=== PATIENT | male | born 1975 | race African-American/Black ===

== ENCOUNTER 2021-12-05 13:18 | Inpatient (IN) | payer OTHER ==
[2021-12-05 14:21] VITALS: BMI 24.9
[2021-12-05] MEDS ORDERED: BISMUTH SUBSALICYLATE 262 MG/15 ML BTL PO PRN (15:40)
[2021-12-05] MEDS ORDERED: NICOTINE 14 MG/24 HOURS TOPICAL PATCH TD PRN (15:40)
[2021-12-05] MEDS ORDERED: LOPERAMIDE HCL 2 MG CAPSULE PO PRN (15:40)
[2021-12-05] MEDS ORDERED: MAGNESIUM CITRATE 300 ML BOTTLE PO PRN (15:40)
[2021-12-05] MEDS ORDERED: DICYCLOMINE HCL 10 MG CAPSULE PO PRN (15:40)
[2021-12-05] MEDS ORDERED: IBUPROFEN 400 MG TABLET (FP) PO PRN (15:40)
[2021-12-05] MEDS ORDERED: MAG HYDROX/AL HYDROX/SIMETH 30 ML UNIT-DOSE CUP PO PRN (15:40)
[2021-12-05] MEDS ORDERED: ONDANSETRON *ODT* 4 MG TABLET SL PRN (15:40)
[2021-12-05] MEDS ORDERED: NALOXONE HCL (KLOXXADO) 8 MG SPRAY NS PRN (15:40)
[2021-12-05] MEDS ORDERED: ACETAMINOPHEN 325 MG TABLET (FP) PO PRN ×2 (15:40)
[2021-12-05] MEDS ORDERED: NICOTINE 10 MG CARTRIDGE (INHALER) IH PRN (15:40)
[2021-12-05] MEDS ORDERED: MAGNESIUM HYDROX 2400MG/30ML ORAL SUSPENSION 30 ML CUP PO PRN (15:40)
[2021-12-05] MEDS ORDERED: BENZOCAINE/MENTHOL (CHLORASEPTIC ) LOZENGE MM PRN (15:40)
[2021-12-05] MEDS ORDERED: IBUPROFEN 600 MG TABLET (FP) PO PRN (15:40)
[2021-12-05] MEDS: diazePAM 5 MG TABLET PO PRN (18:34)
[2021-12-05] MEDS: PRENATAL VITAMINS W/ FOLIC ACID TABLET (FP) PO SCH (18:39)
[2021-12-05] MEDS: hydrOXYzine PAMOATE 25 MG CAPSULE (FP) PO SCH ×2 (18:39→22:26)
[2021-12-05] MEDS ORDERED: THIAMINE HCL 100 MG TABLET (FP) PO SCH (22:00)
[2021-12-05] MEDS ORDERED: MELATONIN 5 MG TABLETS PO SCH (22:00)
[2021-12-05] MEDS ORDERED: ATORVASTATIN CA 20 MG TABLET (FP) PO SCH (22:00)
[2021-12-05] MEDS: diazePAM 5 MG TABLET PO SCH (22:21)
[2021-12-05] MEDS: levETIRAcetam 500 MG TABLET (FP) PO SCH (22:21)
[2021-12-06] MEDS ORDERED: cloNIDine HCL 0.1 MG TABLET PO ONE ×2 (00:39→13:45)
[2021-12-06] MEDS: diazePAM 5 MG TABLET PO PRN (03:00)
[2021-12-06] MEDS: diazePAM 5 MG TABLET PO SCH ×2 (05:08→10:10)
[2021-12-06] MEDS: hydrOXYzine PAMOATE 25 MG CAPSULE (FP) PO SCH ×3 (05:08→13:54)
[2021-12-06] MEDS ORDERED: LISINOPRIL 20 MG TABLET PO ONE (06:47)
[2021-12-06] MEDS: METHOCARBAMOL 500 MG TABLET PO PRN ×2 (10:10→15:34)
[2021-12-06] MEDS: PRENATAL VITAMINS W/ FOLIC ACID TABLET (FP) PO SCH (10:10)
[2021-12-06] MEDS: levETIRAcetam 500 MG TABLET (FP) PO SCH (10:10)
[2021-12-06] MEDS ORDERED: amLODIPine BESYLATE 5 MG TABLET (FP) PO SCH (10:45)
[2021-12-06] MEDS ORDERED: HYDROCHLOROTHIAZIDE 25 MG TABLET (FP) PO SCH (10:45)
[2021-12-06 12:21] LABS: HEMATOCRIT 37.9 % (35.4-49); HEMOGLOBIN 12.3 GM/dL (11.7-16.9); MCH 30.3 pg (25.7-33.7); MCHC 32.5 g/dl (32.0-35.9); MEAN CELL VOLUME 93.1 fl (80-96); MEAN PLT VOLUME 7.9 fl (7.5-11.1); PLATELET COUNT 177 10^3/uL (134-434); RBC 4.07 M/mm3 (4.00-5.60); RDW 13.5 % (11.9-15.9); WHITE BLOOD COUNT 2.9 K/mm3 (4.0-10.0)
[2021-12-06 12:31] LABS: CHLORIDE 97 mmol/L (98-107); SODIUM 141 mmol/L (136-145)
[2021-12-06 13:10] LABS: GLUCOSE,RANDOM 91 mg/dL (74-106)
[2021-12-06 13:13] LABS: CREATININE 0.9 mg/dL (0.55-1.3); SGOT/AST 54 U/L (15-37)
[2021-12-06 13:14] LABS: CALCIUM 9.4 mg/dL (8.5-10.1)
[2021-12-06 13:15] LABS: ALBUMIN 3.5 g/dl (3.4-5.0); CO2 34 mmol/L (21-32)
[2021-12-06 13:18] LABS: BILIRUBIN,TOTAL 0.8 mg/dL (0.2-1)
[2021-12-06 13:19] LABS: SGPT/ALT 38 U/L (13-61); TOT PROT 6.5 g/dl (6.4-8.2)
[2021-12-06 13:20] LABS: ALK PHOS 103 U/L (45-117)
[2021-12-06 13:21] LABS: ANION GAP 10 MMOL/L (8-16)
[2021-12-06] MEDS ORDERED: POTASSIUM CHLORIDE ORAL LIQUID 20 MEQ/15 ML PO ONE (13:45)
[2021-12-06 17:01] VITALS: BP 143/94; PULSE 81; RESP 17; TEMP 97.3
[2021-12-06] MEDS ORDERED: POTASSIUM CHLORIDE ORAL LIQUID 20 MEQ/15 ML PO SCH (22:00)
[2021-12-07] MEDS ORDERED: diazePAM 5 MG TABLET PO SCH (06:00)
[2021-12-08] MEDS ORDERED: diazePAM 5 MG TABLET PO SCH (06:00)
[2021-12-09] MEDS ORDERED: diazePAM 5 MG TABLET PO ONE (06:00)
== END 2021-12-06 16:50 | disposition left against medical advice (07) | DRG 770 ==
LOC: YASAS 13:18 → Y6N 16:40
PROVIDERS: ADMIT Allergy & Immunology; ATTEND Surgery
PROC: HZ2ZZZZ Detoxification Services for Substance Abuse Treatment (ICD-10-PCS; principal; 2021-12-05)
DX: F10.230 Alcohol dependence with withdrawal, uncomplicated (principal); F12.20 Cannabis dependence, uncomplicated; F17.210 Nicotine dependence, cigarettes, uncomplicated; G40.909 Epilepsy, unspecified, not intractable, without status epilepticus; E87.6 Hypokalemia; E78.00 Pure hypercholesterolemia, unspecified; I10 Essential (primary) hypertension; M41.9 Scoliosis, unspecified
CPT/HCPCS: 36415; 80053; 85027; 86780; 93005; 93010; C9803-CS; U0003; U0005

== ENCOUNTER 2022-02-10 13:19 | Inpatient (IN) | payer OTHER ==
[2022-02-10 16:04] VITALS: RESP 18; BMI 24.9
[2022-02-10] MEDS ORDERED: ACETAMINOPHEN 325 MG TABLET (FP) PO PRN ×2 (16:41)
[2022-02-10] MEDS ORDERED: BENZOCAINE/MENTHOL (CHLORASEPTIC ) LOZENGE MM PRN (16:41)
[2022-02-10] MEDS ORDERED: ONDANSETRON *ODT* 4 MG TABLET SL PRN (16:41)
[2022-02-10] MEDS ORDERED: MELATONIN 5 MG TABLETS PO PRN (16:41)
[2022-02-10] MEDS ORDERED: MAG HYDROX/AL HYDROX/SIMETH 30 ML UNIT-DOSE CUP PO PRN (16:41)
[2022-02-10] MEDS ORDERED: POLYETHYLENE GLYCOL (HEALTHYLAX) 3350 17 GM PACKET PO PRN (16:41)
[2022-02-10] MEDS ORDERED: IBUPROFEN 400 MG TABLET (FP) PO PRN (16:41)
[2022-02-10] MEDS ORDERED: guaiFENesin 200 MG/10 ML 10 ML UNIT-DOSE CUPS PO PRN (16:41)
[2022-02-10] MEDS ORDERED: BISMUTH SUBSALICYLATE 524 MG/30 ML PO PRN (16:41)
[2022-02-10] MEDS ORDERED: P-EPHED 60MG/TRIPROLIDI 2.5MG TABLET PO PRN (16:41)
[2022-02-10] MEDS ORDERED: DICYCLOMINE HCL 10 MG CAPSULE PO PRN (16:41)
[2022-02-10] MEDS ORDERED: MAGNESIUM HYDROX 2400MG/30ML ORAL SUSPENSION 30 ML CUP PO PRN (16:41)
[2022-02-10] MEDS ORDERED: NICOTINE 10 MG CARTRIDGE (INHALER) IH PRN (16:41)
[2022-02-10] MEDS ORDERED: IBUPROFEN 600 MG TABLET (FP) PO PRN (16:41)
[2022-02-10] MEDS ORDERED: LOPERAMIDE HCL 2 MG CAPSULE PO PRN (16:41)
[2022-02-10] MEDS: hydrOXYzine PAMOATE 25 MG CAPSULE (FP) PO PRN (19:24)
[2022-02-10] MEDS: METHOCARBAMOL 500 MG TABLET PO PRN (19:25)
[2022-02-10] MEDS ORDERED: THIAMINE HCL 100 MG TABLET (FP) PO SCH (22:00)
[2022-02-10] MEDS: levETIRAcetam 500 MG TABLET (FP) PO SCH (22:28)
[2022-02-11] MEDS ORDERED: PRENATAL VITAMINS W/ FOLIC ACID TABLET (FP) PO SCH (10:00)
[2022-02-11] MEDS: METHOCARBAMOL 500 MG TABLET PO PRN (10:34)
[2022-02-11] MEDS: hydrOXYzine PAMOATE 25 MG CAPSULE (FP) PO PRN (10:34)
[2022-02-11] MEDS: levETIRAcetam 500 MG TABLET (FP) PO SCH (10:34)
[2022-02-11 13:02] VITALS: BP 144/104; PULSE 104; TEMP 97.3
[2022-02-11 13:05] LABS: CALCIUM 9.4 mg/dL (8.5-10.1)
[2022-02-11 13:06] LABS: ALBUMIN 3.6 g/dl (3.4-5.0); BLOOD UREA NITROGEN 17.8 mg/dL (7-18)
[2022-02-11 13:10] LABS: TOT PROT 6.9 g/dl (6.4-8.2)
[2022-02-11 13:11] LABS: BILIRUBIN,TOTAL 0.6 mg/dL (0.2-1); HEMATOCRIT 38.1 % (35.4-49); HEMOGLOBIN 12.3 GM/dL (11.7-16.9); MCH 29.9 pg (25.7-33.7); MCHC 32.3 g/dl (32.0-35.9); MEAN CELL VOLUME 92.4 fl (80-96); MEAN PLT VOLUME 8.4 fl (7.5-11.1); PLATELET COUNT 186 10^3/uL (134-434); RBC 4.12 M/mm3 (4.00-5.60); RDW 13.4 % (11.9-15.9); WHITE BLOOD COUNT 3.1 K/mm3 (4.0-10.0)
== END 2022-02-11 14:20 | disposition home or self-care (01) | DRG 775 ==
LOC: YASAS 13:19 → Y3N 18:35
PROVIDERS: ADMIT Allergy & Immunology; ATTEND Surgery
PROC: HZ2ZZZZ Detoxification Services for Substance Abuse Treatment (ICD-10-PCS; principal; 2022-02-10)
DX: F10.230 Alcohol dependence with withdrawal, uncomplicated (principal); F12.20 Cannabis dependence, uncomplicated; F17.210 Nicotine dependence, cigarettes, uncomplicated; G40.909 Epilepsy, unspecified, not intractable, without status epilepticus; E78.00 Pure hypercholesterolemia, unspecified
CPT/HCPCS: 36415; 80053; 85027; 86780; C9803-CS; U0003; U0005